=== PATIENT | female | born 1975 | race Caucasian/White ===

== ENCOUNTER 2017-10-06 14:54 | Emergency (ER) | payer MEDICAID, SELFPAY ==
[2017-10-06 14:55] VITALS: BP 139/91; PULSE 76; RESP 16; TEMP 36.5; O2SAT 100; BMI 27.2
--- NOTE | 2017-10-06 15:29 | ED.DCSUM_ITS ---
- ER Visit Summary Date of Service: 10/06/17 Chief Complaint: Dental pain History of Present Illness: The patient is a 42 F states she woke at 230 this morning with left upper dental pain. She does not know of any injury. She has been taking ibuprofen every 4 hours and is using BMX swish and spit. She is also tried Orajel. She states that she has had gastric bypass and is not supposed be taking anti-inflammatories. Physical Examination: Vital signs are unremarkable. Patient sitting in a bedside chair no acute distress. Head neck examination was no facial edema or erythema. Intraoral examination reveals reproducible tenderness of the left maxillary second molar. She has mild gum edema. Filling is in place. There is no trismus and uvula is midline. She speaking with a strong voice and has been tolerating secretions without difficulty. Trachea is midline. There is no cervical lymphadenopathy. Heart is regular rate and rhythm. Lung sounds are clear. Abdomen is soft nontender. Test Results: [] Emergency Department Course and Treatment: Patient be given a perception for Pen -Vee K, first dose given here. She is encouraged to alternate Tylenol and ibuprofen. She is to use Orajel. She was given a dental referral list. Treatment Plan: [] Disposition: Discharge Impression: Odontalgia This note was generated with [employer] - ASO dictation software. It may contain incorrect words, spelling, and punctuation that were not noted in review of the chart prior to signing ED Disposition - Plan for ED Patient: Chief Complaint: Dental Referrals: Leonora Pruitt MD [Primary Care Provider] -
--- NOTE | 2017-10-06 15:29 | ED.DEP ---
ED Disposition - Plan for ED Patient: Disposition: Home or Assisted Living Chief Complaint: Dental Instructions: ED Tooth Pain Prescriptions: Penicillin V Potassium 500 mg PO 4X/DAY #40 tablet Referrals: Leonora Pruitt MD [NON-STAFF] - Additional Instructions: Dental referral list provided.
[2017-10-06] MEDS: Penicillin Vk 250 MG Tablet 500 MG PO (15:37)
== END 2017-10-06 15:40 | disposition home or self-care (01) ==
PROVIDERS: Emergency Provider Emergency Medicine
DX: K08.89 Other specified disorders of teeth and supporting structures (principal); Z98.84 Bariatric surgery status; Z87.442 Personal history of urinary calculi
CPT/HCPCS: 99282

== ENCOUNTER 2017-11-07 10:21 | Inpatient (IN) | payer MEDICAID, SELFPAY ==
[2017-11-07] VITALS (8 sets, daily range): BP systolic 128–144; BP diastolic 79–96; PULSE 91–100; RESP 16–18; TEMP 35.9–36.9; O2SAT 93–99; BMI 30.1
--- NOTE | 2017-11-07 10:33 | ED.VISSUMM ---
- ER Visit Summary Date of Service: 11/07/17 Chief Complaint: Requesting detox for chronic alcoholism History of Present Illness: The patient is a 42 F history of alcohol abuse. Patient states she drinks 2 pints of vodka a day. History of anemia. Depression. Last drink was earlier this morning to calm her nerves. Physical Examination: Well-appearing middle-age female. Vital signs are stable afebrile. HEENT exam unremarkable. Neck nontender no lymphadenopathy. Lungs clear to auscultation bilaterally. Heart regular rate and rhythm no murmur. Abdomen soft nontender. Moving all 4 extremities. Neurovascular intact. Back exam nontender. Neurologically she is awake alert with no focal deficits at this time. Test Results: None Emergency Department Course and Treatment: I spoke to the [facility] personnel who will come down to the ER evaluate the patient for possible admission. Treatment Plan: Patient evaluated patient and accepted her for detox. I spoke to the hospitalist and they will admit her. Disposition: Admission for detox Impression: History of chronic alcoholism Requesting detox History of anemia This note was generated with Sophia Search dictation software. It may contain incorrect words, spelling, and punctuation that were not noted in review of the chart prior to signing ED Disposition - Plan for ED Patient: Chief Complaint: Subst Abuse Referrals: [facility] Doctor,Out of [Primary Care Provider] -
--- NOTE | 2017-11-07 10:38 | ED.DCSUM_ITS ---
- ER Visit Summary Date of Service: 11/07/17 Chief Complaint: Requesting detox for chronic alcoholism History of Present Illness: The patient is a 42 F history of alcohol abuse. Patient states she drinks 2 pints of vodka a day. History of anemia. Depression. Last drink was earlier this morning to calm her nerves. Physical Examination: Well-appearing middle-age female. Vital signs are stable afebrile. HEENT exam unremarkable. Neck nontender no lymphadenopathy. Lungs clear to auscultation bilaterally. Heart regular rate and rhythm no murmur. Abdomen soft nontender. Moving all 4 extremities. Neurovascular intact. Back exam nontender. Neurologically she is awake alert with no focal deficits at this time. Test Results: None Emergency Department Course and Treatment: I spoke to the [facility] personnel who will come down to the ER evaluate the patient for possible admission. Treatment Plan: Patient evaluated patient and accepted her for detox. I spoke to the hospitalist and they will admit her. Disposition: Admission for detox Impression: History of chronic alcoholism Requesting detox History of anemia This note was generated with [employer] dictation software. It may contain incorrect words, spelling, and punctuation that were not noted in review of the chart prior to signing ED Disposition - Plan for ED Patient: Chief Complaint: Subst Abuse Referrals: [facility] Doctor,Out of [Primary Care Provider] -
--- NOTE | 2017-11-07 11:27 | NURSING ---
[facility] at bedside with pt.
[2017-11-07] MEDS: LORazepam 1 MG Tablet PO ×4 (11:28→22:56)
[2017-11-07 12:23] LABS: Amphetamine Urine VISTA NEGATIVE (<1000 ng/mL); Barbiturate Urine VISTA NEGATIVE (< 200 ng/mL); Benzodiazepine Urine VISTA NEGATIVE (< 200 ng/mL); Cocaine Urine VISTA NEGATIVE (< 300 ng/mL); Ecstacy Urine VISTA NEGATIVE (< 500 ng/mL); Methadone Urine VISTA NEGATIVE (< 300 ng/mL); PCP Urine VISTA NEGATIVE (< 25 ng/mL); THC Urine VISTA NEGATIVE (< 50 ng/mL); Vista UDS pH Range 6
[2017-11-07] MEDS: Ondansetron ODT 4 MG Tablet PO (12:23)
[2017-11-07 12:41] LABS: Amylase 65 U/L (25-115); Lipase 160 U/L (73-393)
--- NOTE | 2017-11-07 12:43 | PCM.HP.STD ---
Problem List (1) Alcohol withdrawal Status: Acute Qualifiers: Complication of substance-induced condition: uncomplicated Qualified Code(s): F10.230 - Alcohol dependence with withdrawal, uncomplicated (2) Anxiety and depression Status: Chronic History of Present Illness Date of Admission: 11/07/17 Chief Complaint: Tremors, sweats, nausea, diaphoresis - 1 day The patient is a 42 year old F with PMHx of disorder with use of more than 2 pints of vodka every day, history of opiate use disorder, and, anxiety and depression who comes in with sweatiness, tremors, nausea ongoing for more than 1 day. Last drink was this morning. Patient is looking for medical stabilization with [facility]. The [facility] staff was apparently evaluated and has admitted her for the program. Vitals in the ED were stable with slight elevation in blood pressure of 144/96. Past Medical History Past Medical History (Chronic Problems): Chronic Problems Anxiety and depression (Chronic) Allergies No Known Allergies Allergy (Verified 11/07/17 10:23) Home Medications: Ambulatory Orders Medication Instructions Recorded Multivitamin [Daily Multiple 1 each PO DAILY 04/15/16 Vitamin] Sertraline HCl [Zoloft] 150 mg PO DAILY 04/15/16 Ferrous Sulfate 325 mg PO DAILY@0800 11/07/17 Mirtazapine [Remeron] 30 mg PO QHS 11/07/17 Varenicline [Chantix] 1 mg PO DAILY 11/07/17 Surgical History: - - gastric bypass. 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 Denies: Fever, Weakness, Weight Change Eyes: Denies: Blurred vision, Cataracts, Conjunctivae Inflammation HEENT: Denies: Difficulty Hearing, Difficulty Swallowing, Head Aches, Hearing Changes, Sinus Congestion, Sinus Drainage Cardiovascular: Denies: Chest Pain, Claudication, Chest Pressure, Orthopnea, Palpitations, Paroxysmal Noc. Dyspnea Respiratory: Denies: Cough, Hemoptysis, Pleuritic Pain, Shortness of breath at rest, Shortness of breath upon exertion, Sputum production Gastrointestinal: Reports: Nausea. Denies: Abdominal Pain, Constipation, Hematemesis, Hematochezia, Vomiting Genitourinary: Denies: Dysuria, Frequency, Hematuria, Incontinence, Nocturia Gynecological: Denies: Breast symptoms, Excessively long or heavy periods Musculoskeletal: Denies: Joint Pain, Joint stiffness, Joint swelling, Joint Tenderness Skin: Denies: Dryness, Rash, Wounds Neurological: Denies: Difficulty swallowing, Focal weakness, Headaches, Numbness, Tingling Psychiatric: Denies: Anxiety, Depression, Homicidal Ideations, Suicidal Ideations Endocrine: Denies: Change in Body Habitus, Heat/ Cold Intolerance Hematologic/ Lymphatic: Denies: Easy Bruising, Easy Bleeding VTE Information - Inpt Only VTE Present on Admission: No VTE Pharm Prophylaxis ordered?: Yes Patient Problems: Active and Suspected Problems Alcohol withdrawal (Acute) - Physical Exam General: Alert, Oriented x3, Cooperative, No apparent distress HEENT: Atraumatic, PERRLA, EOMI, Normocephalic Oral: Moist Mucosa Neck: Supple Lungs: Clear to auscultation, Normal air movement Cardiovascular: Regular rate, Regular Rhythm, Normal S1, Normal S2, No murmurs Abdomen: Bowel Sounds Present, Soft, Non Tender, Non-Distended, No Hepato-splenomegaly Extremities: No edema Skin: No rashes, No breakdown Musculoskeletal: No Tenderness to Palpation of Joints or Extremities Lymphatic: No Cervical, Supraclavicular, or Inguinal Adenopathy Neurological: Cranial nerves II-XII grossly intact, Neuro grossly intact, Motor Exam 5/5 strength throughout Psych/Mental Status: Normal Affect, Appropriate Vital Signs Temp Pulse Resp BP Pulse Ox 96.7 F L 92 18 144/96 H 97 11/07/17 11:15 11/07/17 11:15 11/07/17 11:15 11/07/17 11:15 11/07/17 11:15 Weight: 95.254 kg Body Mass Index (BMI) 30.1 Laboratory Tests Past 24 Hrs 11/07/17 11/07/17 11/07/17 11:31 12:20 12:20 PT INR Amylase 65 Lipase 160 Serum , Qual Urine Opiates Screen NEGATIVE Urine Methadone Screen NEGATIVE Ur Barbiturates Screen NEGATIVE Ur Phencyclidine Scrn NEGATIVE Ur Amphetamines Screen NEGATIVE U Methamphetamin-MDMA NEGATIVE U Benzodiazepines Scrn NEGATIVE Urine Cocaine Screen NEGATIVE U Cannabinoids Screen NEGATIVE Ur Drug Screen Comment Ethyl Alcohol Pending 11/07/17 11/07/17 12:20 12:20 PT Pending INR Pending Amylase Lipase Serum , Qual Pending Urine Opiates Screen Urine Methadone Screen Ur Barbiturates Screen Ur Phencyclidine Scrn Ur Amphetamines Screen U Methamphetamin-MDMA U Benzodiazepines Scrn Urine Cocaine Screen U Cannabinoids Screen Ur Drug Screen Comment Ethyl Alcohol Assessment/Plan Active and Suspected Problems Alcohol withdrawal (Acute) 42 year old F with PMHx of disorder with use of more than 2 pints of vodka every day, history of opiate use disorder, and, anxiety and depression who comes in with sweatiness, tremors, nausea ongoing for more than 1 day. 1. Acute Alcohol withdrawal, admitting alcohol level is 151, stable vitals, will admit to the [facility] floor, monitor using the [facility] alcohol withdrawal protocol. 2. Anxiety/depression, continue home antidepressants. 3. History of kidney stones 4. Former nicotine use disorder, on Chantix 5. DVT PPx - Lovenox [place] Code Visit Inpatient E&M: 93630 Init Hosp L2
[2017-11-07 12:48] LABS: Prothrombin Time (Protime)PT. 13.2 SECONDS (11.7-14.9)
[2017-11-07 12:49] LABS: Pregnancy, Serum, hCG Quali. NEGATIVE Negative (0-9 Nonpreg)
--- NOTE | 2017-11-07 12:57 | HP.PCM_ITS ---
Problem List (1) Alcohol withdrawal Status: Acute Qualifiers: Complication of substance-induced condition: uncomplicated Qualified Code(s ): F10.230 - Alcohol dependence with withdrawal, uncomplicated (2) Anxiety and depression Status: Chronic History of Present Illness Date of Admission: 11/07/17 Chief Complaint: Tremors, sweats, nausea, diaphoresis - 1 day The patient is a 42 year old F with PMHx of disorder with use of more than 2 pints of vodka every day, history of opiate use disorder, and, anxiety and depression who comes in with sweatiness, tremors, nausea ongoing for more than 1 day. Last drink was this morning. Patient is looking for medical stabilization with [facility]. The [facility] staff was apparently evaluated and has admitted her for the program. Vitals in the ED were stable with slight elevation in blood pressure of 144/96. Past Medical History Past Medical History (Chronic Problems): Chronic Problems Anxiety and depression (Chronic) Allergies No Known Allergies Allergy (Verified 11/07/17 10:23) Home Medications: Ambulatory Orders Medication Instructions Recorded Multivitamin [Daily Multiple 1 each PO DAILY 04/15/16 Vitamin] Sertraline HCl [Zoloft] 150 mg PO DAILY 04/15/16 Ferrous Sulfate 325 mg PO DAILY@0800 11/07/17 Mirtazapine [Remeron] 30 mg PO QHS 11/07/17 Varenicline [Chantix] 1 mg PO DAILY 11/07/17 Surgical History: - - gastric bypass. 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 Denies: Fever, Weakness, Weight Change Eyes: Denies: Blurred vision, Cataracts, Conjunctivae Inflammation HEENT: Denies: Difficulty Hearing, Difficulty Swallowing, Head Aches, Hearing Changes, Sinus Congestion, Sinus Drainage Cardiovascular: Denies: Chest Pain, Claudication, Chest Pressure, Orthopnea, Palpitations, Paroxysmal Noc. Dyspnea Respiratory: Denies: Cough, Hemoptysis, Pleuritic Pain, Shortness of breath at rest, Shortness of breath upon exertion, Sputum production Gastrointestinal: Reports: Nausea. Denies: Abdominal Pain, Constipation, Hematemesis, Hematochezia, Vomiting Genitourinary: Denies: Dysuria, Frequency, Hematuria, Incontinence, Nocturia Gynecological: Denies: Breast symptoms, Excessively long or heavy periods Musculoskeletal: Denies: Joint Pain, Joint stiffness, Joint swelling, Joint Tenderness Skin: Denies: Dryness, Rash, Wounds Neurological: Denies: Difficulty swallowing, Focal weakness, Headaches, Numbness , Tingling Psychiatric: Denies: Anxiety, Depression, Homicidal Ideations, Suicidal Ideations Endocrine: Denies: Change in Body Habitus, Heat/ Cold Intolerance Hematologic/ Lymphatic: Denies: Easy Bruising, Easy Bleeding VTE Information - Inpt Only VTE Present on Admission: No VTE Pharm Prophylaxis ordered?: Yes Patient Problems: Active and Suspected Problems Alcohol withdrawal (Acute) - Physical Exam General: Alert, Oriented x3, Cooperative, No apparent distress HEENT: Atraumatic, PERRLA, EOMI, Normocephalic Oral: Moist Mucosa Neck: Supple Lungs: Clear to auscultation, Normal air movement Cardiovascular: Regular rate, Regular Rhythm, Normal S1, Normal S2, No murmurs Abdomen: Bowel Sounds Present, Soft, Non Tender, Non-Distended, No Hepato- splenomegaly Extremities: No edema Skin: No rashes, No breakdown Musculoskeletal: No Tenderness to Palpation of Joints or Extremities Lymphatic: No Cervical, Supraclavicular, or Inguinal Adenopathy Neurological: Cranial nerves II-XII grossly intact, Neuro grossly intact, Motor Exam 5/5 strength throughout Psych/Mental Status: Normal Affect, Appropriate Vital Signs Temp Pulse Resp BP Pulse Ox 96.7 F L 92 18 144/96 H 97 11/07/17 11:15 11/07/17 11:15 11/07/17 11:15 11/07/17 11:15 11/07/17 11:15 Weight: 95.254 kg Body Mass Index (BMI) 30.1 Laboratory Tests Past 24 Hrs 11/07/17 11/07/17 11/07/17 11:31 12:20 12:20 PT INR Amylase 65 Lipase 160 Serum , Qual Urine Opiates Screen NEGATIVE Urine Methadone Screen NEGATIVE Ur Barbiturates Screen NEGATIVE Ur Phencyclidine Scrn NEGATIVE Ur Amphetamines Screen NEGATIVE U Methamphetamin-MDMA NEGATIVE U Benzodiazepines Scrn NEGATIVE Urine Cocaine Screen NEGATIVE U Cannabinoids Screen NEGATIVE Ur Drug Screen Comment Ethyl Alcohol Pending 11/07/17 11/07/17 12:20 12:20 PT Pending INR Pending Amylase Lipase Serum , Qual Pending Urine Opiates Screen Urine Methadone Screen Ur Barbiturates Screen Ur Phencyclidine Scrn Ur Amphetamines Screen U Methamphetamin-MDMA U Benzodiazepines Scrn Urine Cocaine Screen U Cannabinoids Screen Ur Drug Screen Comment Ethyl Alcohol Assessment/Plan Active and Suspected Problems Alcohol withdrawal (Acute) 42 year old F with PMHx of disorder with use of more than 2 pints of vodka every day, history of opiate use disorder, and, anxiety and depression who comes in with sweatiness, tremors, nausea ongoing for more than 1 day. 1. Acute Alcohol withdrawal, admitting alcohol level is 151, stable vitals, will admit to the MedSur floor, monitor using the [facility] alcohol withdrawal protocol. 2. Anxiety/depression, continue home antidepressants. 3. History of kidney stones 4. Former nicotine use disorder, on Chantix 5. DVT PPx - Lovenox SC Code Visit Inpatient E&M: 09533 Init Hosp L2
[2017-11-07] MEDS: hydrOXYzine PAM 25 MG Capsule 50 MG PO ×2 (13:19→20:18)
[2017-11-07] MEDS: Methocarbamol 750 MG Tablet PO ×2 (13:19→20:18)
[2017-11-07] MEDS: Famotidine 20 MG Tablet PO ×2 (13:19→21:33)
--- NOTE | 2017-11-07 13:41 | NURSING ---
pt refused iv insertion at this time
--- NOTE | 2017-11-07 14:26 | NURSING ---
at 1400, pt was restless (but not shaking) wanting something for what she describes as feeling hot inside-reviewed meds available at this time with pt and she declines motrin offerred because she is afraid that will upset her stomach-pt was encouraged to wait for 3 pm dose of ativan and assessment and she is agreeable to that at this time-@ 1430 this nurse rounded on pt and pt is laying on stomach in bed, snoring, call light in reach
[2017-11-07] MEDS: QUEtiapine 25 MG Tablet PO ×2 (15:04→21:33)
[2017-11-07] MEDS: Acetaminophen 500 MG Tablet PO (15:06)
--- NOTE | 2017-11-07 15:57 | CHAPLAIN ---
Type of Pastoral Visit _x__ Initial Visit ___ Follow-up Visit ___ On-call Visit ___ General Patient Visit ___ Spiritual Assessment ___ Family Conference ___ Bereavement ___ Rapid Response ___ Code Blue ___ Other (describe below) Pastoral Care Referral From _x__ Patient ___ Family ___ Nurse ___ Physician ___ Corporate Sales Representative ___ Orthodontic Assistant ___ Other (describe below) Sacrament/Intervention _x__ Active listening ___ Anointing ___ Cheondoism ___ Bereavement ___ Communion ___ Gypsy exploration ___ _x__ Life review _x__ Prayer ___ Reconciliation ___ Sacrament of Sick ___ Supportive presence ___ Wedding ___ Other (describe below) Pastoral Comments met this patient while she was in ER because [facility] staff invited me to welcome her and offer support for her recovery; found pt in her room after she was settled; pt gave some life history and struggle with sobriety; pt has a young son; pt has support from AA which she says has been an active part of her life; pt is open to support; pt accepted prayer for her recovery
[2017-11-07] MEDS: Dicyclomine 10 MG Capsule 20 MG PO (18:26)
[2017-11-07] MEDS: Pramipexole Di-HCl 0.25 MG Tablet PO (18:26)
[2017-11-07] MEDS: Ibuprofen 600 MG Tablet PO (18:26)
[2017-11-07] MEDS: Senna/Docusate Sodium 1 Tablet 2 TABLET PO (21:33)
[2017-11-07] MEDS: Mirtazapine 30 MG Tablet PO (21:33)
[2017-11-07] MEDS: Varenicline 1 MG Tablet PO (21:58)
[2017-11-08] MEDS: hydrOXYzine PAM 25 MG Capsule 50 MG PO ×4 (01:13→21:48)
[2017-11-08 02:00] VITALS: BP 142/104; PULSE 95; RESP 16; TEMP 36.6; O2SAT 98
[2017-11-08] MEDS: LORazepam 1 MG Tablet PO ×4 (03:54→19:00)
[2017-11-08] MEDS: QUEtiapine 25 MG Tablet PO ×3 (03:54→20:42)
[2017-11-08 05:53] LABS: Absolute Lymphocyte Count 3.14 X10^3/ul (0.83-4.51); Absolute Neutrophil Count 3.2 X10^3/uL (2.0-7.7); Basophil# 0.05 X10^3/uL; Basophil% 0.7 % (0-1); Eosinophil# 0.17 X10^3/uL; Eosinophils% 2.4 % (0-5); Hematocrit 28.8 % (37-47); Lymphocyte # 3.14 X10^3/ul (4.0); Mean Corp Hgb Conc 31.3 g/gl (32-36); Mean Corpuscular Hgb 27.5 pg (27.0-32.0); Mean Corpuscular Volume 88.1 fL (81-99); Mean Platelet Vol. 8.7 fl (6.2-12.0); Monocyte# 0.58 X10^3/uL; Monocyte% 8.1 % (0-10); Neutrophil # 3.18 X10^3/uL (2.7-7.7); Neutrophil % 44.7 % (47-70); Platelet Count 322 K/mm3 (150-450); RBC Distribution Width CV 13.7 % (11.6-14.6); RBC Distribution Width SD 42.6 fl (35.1-43.9); Red Blood Count 3.27 M/mm3 (4.2-5.4); White Blood Count 7.1 K/mm3 (4.4-11.0)
[2017-11-08 05:55] LABS: POSITIVE COUNT NO; POSITIVE DIFFERENTIAL NO; POSITIVE MORPHOLOGY NO
[2017-11-08 06:10] LABS: Anion Gap 6 (5-15); BUN 13 mg/dL (7-18); Calcium,Total 7.8 mg/dL (8.5-10.1); Chloride 109 mmol/L (98-107); EST Glomerular Filtration Rate 145 mL/min (>60); Est Glom Filt Rate - Afr Amer 175 mL/min (>60); Estimated Creatinine Clearance 161.74 ml/min; Glucose 108 mg/dL (74-106); Potassium 3.4 mmol/L (3.5-5.1); Sodium Level 141 mmol/L (136-145)
--- NOTE | 2017-11-08 07:51 | PCM.PN.HOSP ---
Patient Problems: Active and Suspected Problems Alcohol withdrawal (Acute) Subjective: Patient was seen and examined. She complains of poor sleep last night. Has anxiety and feels the Ativan given is taking the edge off it. Complains of bilateral flank pain and feels is related to her episodes of drinking. Denies any dysuria or frequency or urgency. Objective: Physical Exam General: Alert, Oriented x3, Cooperative, No apparent distress HEENT: Atraumatic, PERRLA, EOMI, Normocephalic Oral: Moist Mucosa Neck: Supple Lungs: Clear to auscultation, Normal air movement Cardiovascular: Regular rate, Regular Rhythm, Normal S1, Normal S2, No murmurs Abdomen: Bowel Sounds Present, Soft, Non Tender, Non-Distended, No Hepato-splenomegaly Extremities: No edema Skin: No rashes, No breakdown Musculoskeletal: No Tenderness to Palpation of Joints or Extremities Lymphatic: No Cervical, Supraclavicular, or Inguinal Adenopathy Neurological: Cranial nerves II-XII grossly intact, Neuro grossly intact, Motor Exam 5/5 strength throughout, no tremors seen Psych/Mental Status: Normal Affect, Appropriate Vitals/I&O's: Vital Signs Temp Pulse Resp BP Pulse Ox 97.9 F 95 16 142/104 H 98 11/08/17 02:00 11/08/17 02:00 11/08/17 02:00 11/08/17 02:00 11/08/17 02:00 Oxygen Delivery Method Room Air Weight: 95.254 kg Body Mass Index (BMI) 30.1 Laboratory Results 11/07/17 11:31: Urine Opiates Screen NEGATIVE, Urine Methadone Screen NEGATIVE, Ur Barbiturates Screen NEGATIVE, Ur Phencyclidine Scrn NEGATIVE, Ur Amphetamines Screen NEGATIVE, U Methamphetamin-MDMA NEGATIVE, U Benzodiazepines Scrn NEGATIVE, Urine Cocaine Screen NEGATIVE, U Cannabinoids Screen NEGATIVE, Ur Drug Screen Comment 11/07/17 12:20: Ethyl Alcohol 151.0 11/07/17 12:20: Amylase 65, Lipase 160 11/07/17 12:20: PT 13.2, INR 1.0 11/07/17 12:20: Serum , Qual NEGATIVE 11/08/17 05:30: WBC 7.1, RBC 3.27 L, Hgb 9.0 L, Hct 28.8 L, MCV 88.1, MCH 27.5, MCHC 31.3 L, RDW 13.7, RDW Differential 42.6, Plt Count 322, MPV 8.7, Immature Gran % (Auto) 0.100, Neut % (Auto) 44.7 L, Lymph % (Auto) 44.0 H, [place] % (Auto) 8.1, Eos % (Auto) 2.4, Baso % (Auto) 0.7, Absolute Neuts (auto) 3.2, Absolute Lymphs (auto) 3.14, Total Counted Not Reportable 11/08/17 05:30: Sodium 141, Potassium 3.4 L, Chloride 109 H, Carbon Dioxide 26.0, Anion Gap 6, BUN 13, Creatinine 0.50 L, Estim Creat Clear Calc 161.74, Est GFR (MDRD) Af Amer 175, Est GFR (MDRD) Non-Af 145, BUN/Creatinine Ratio 26.0 H, Glucose 108 H, Calcium 7.8 L Current Medications Acetaminophen (Tylenol) 500 mg PO Q4H PRN PRN PRN Reason: Temp > 100.4 F Last Admin: 11/07/17 15:06 Dose: 500 mg Al Hydroxide/Mg Hydroxide (Mylanta Ii) 30 ml PO Q6H PRN PRN PRN Reason: dyspesia Bisacodyl (Dulcolax) 5 mg PO DAILY PRN PRN PRN Reason: Constipation Dicyclomine HCl (Bentyl) 20 mg PO Q6H PRN PRN PRN Reason: abdominal discomfort Last Admin: 11/07/17 18:26 Dose: 20 mg Famotidine (Pepcid) 20 mg PO BID [facility] Last Admin: 11/07/17 21:33 Dose: 20 mg Ferrous Sulfate (Ferrous Sulfate) 325 mg PO DAILY@0800 [facility] Folic Acid (Folic Acid) 1 mg PO DAILY@0800 [facility] Hydroxyzine Pamoate (Vistaril Pamoate Capsule) 50 mg PO Q6H PRN PRN PRN Reason: Mild Anxiety (score 1/3) Last Admin: 11/08/17 01:13 Dose: 50 mg Ibuprofen (Motrin) 600 mg PO Q8H PRN PRN PRN Reason: Mild-Moderate Pain (1-5/10) Last Admin: 11/07/17 18:26 Dose: 600 mg Lorazepam (Ativan) 1 mg PO Q6H [facility] PRN Reason: Taper Stop: 11/10/17 15:29 Last Admin: 11/08/17 06:47 Dose: 1 mg Magnesium Hydroxide (Milk Of Magnesia) 30 ml PO DAILY PRN PRN PRN Reason: Constipation Methocarbamol (Methocarbamol) 750 mg PO Q6H PRN PRN PRN Reason: Muscle Aches Last Admin: 11/07/17 20:18 Dose: 750 mg Mirtazapine (Remeron) 30 mg PO QHS [facility] Last Admin: 11/07/17 21:33 Dose: 30 mg Multivitamins (Multivitamin) 1 tablet PO DAILY@0800 [facility] Ondansetron HCl (Zofran Odt) 4 mg PO Q6H PRN PRN PRN Reason: NAUSEA Last Admin: 11/07/17 12:23 Dose: 4 mg Pramipexole Dihydrochloride (Mirapex) 0.25 mg PO Q12H PRN PRN PRN Reason: Restless legs Last Admin: 11/07/17 18:26 Dose: 0.25 mg Psyllium Hydrophilic Mucilloid (Metamucil) 1 packet PO DAILY PRN PRN PRN Reason: CONSTIPATION Quetiapine Fumarate (Seroquel) 25 mg PO Q6H PRN PRN PRN Reason: Moderate Anxiety (score 2/3) Last Admin: 11/08/17 03:54 Dose: 25 mg Senna/Docusate Sodium (Senokot-S, Jyoti-Colace) 2 tablet PO BID [facility] Last Admin: 11/07/17 21:33 Dose: 2 tablet Sertraline HCl (Zoloft) 150 mg PO DAILY [facility] Sodium Chloride () 5 - 30 ml IV UD PRN PRN Reason: SALINE FLUSH [facility]) [facility] Varen[facility]line (Chantix) 1 mg PO BID [facility] Last Admin: 11/07/17 21:58 Dose: 1 mg Medical Necessity - Tobacco Use Smoking Status: Former smoker Tobacco Use: Non-smoker Assessment/Plan Active and Suspected Problems Alcohol withdrawal (Acute) 42 year old F with PMHx of alcohol use disorder with use of more than 2 pints of vodka every day, history of opiate use disorder, anxiety and depression who comes in with sweatiness, tremors, nausea ongoing for more than 1 day. 1. Acute alcohol withdrawal, mild, stable vitals, will continue using the [facility] alcohol withdrawal protocol. 2. Hypokalemia, will replace, recheck in am 3. Anxiety/depression, continue on home antidepressants. 4. History of kidney stones 5. Former nicotine use disorder, on Chantix 6. DVT PPx - Lovenox [place] Code Visit Inpatient E&M: 83387 Subs Hosp L2
[2017-11-08 08:00] VITALS: BP 141/103; PULSE 110; RESP 18; TEMP 36.6; O2SAT 94
[2017-11-08] MEDS: Multivitamins,Therapeutic Tablet 1 TABLET PO (08:46)
[2017-11-08] MEDS: Folic Acid 1 MG Tablet PO (08:46)
[2017-11-08] MEDS: Ferrous Sulfate 325 MG Tablet PO (08:46)
[2017-11-08] MEDS: Thiamine Hydrochloride 100 MG Tablet PO (08:47)
[2017-11-08] MEDS: Varenicline 1 MG Tablet PO ×2 (08:47→20:43)
[2017-11-08] MEDS: Sertraline 100 MG Tablet 150 MG PO (08:48)
[2017-11-08] MEDS: Famotidine 20 MG Tablet PO ×2 (08:48→20:44)
[2017-11-08] MEDS: Ibuprofen 600 MG Tablet PO (08:49)
[2017-11-08] MEDS: Methocarbamol 750 MG Tablet PO ×2 (08:49→15:21)
[2017-11-08] MEDS: cloNIDine HCl 0.1 MG Tablet PO ×4 (08:58→21:51)
[2017-11-08 09:08] VITALS: BP 141/103; PULSE 97; RESP 18; TEMP 36.8
[2017-11-08 13:00] VITALS: BP 145/101; PULSE 104; PULSE 97; RESP 20; TEMP 36.9; O2SAT 99
--- NOTE | 2017-11-08 17:20 | NURSING ---
1700- job and family services at bedside. pt states 'i am feeling better now, so can you take that alarm off of my bed. informed pt that she reported she had fallen earlier to another staff member- and because pt states she fell which was unwitenessed by staff- the bed exit will need to remain on for pt safety.
--- NOTE | 2017-11-08 20:02 | NURSING ---
Per dayshift RN patients visitor turned off patients bed alarm, when this RN went into do rounds with off going RN, bed alarm was off. Patient is not walking around independently in room, gait steady, visitor still in room at this time.
[2017-11-08 20:35] VITALS: BP 127/77; PULSE 86; RESP 16; TEMP 36.4; O2SAT 99
--- NOTE | 2017-11-08 20:39 | NURSING ---
Patient requesting routine HS meds given at this time.
[2017-11-08] MEDS: Mirtazapine 30 MG Tablet PO (20:45)
[2017-11-08] MEDS: Pramipexole Di-HCl 0.25 MG Tablet PO (21:48)
[2017-11-08 21:52] VITALS: BP 127/77; PULSE 86; RESP 16; TEMP 36.4
[2017-11-09] VITALS (7 sets, daily range): BP systolic 100–127; BP diastolic 62–84; PULSE 75–91; RESP 16–18; TEMP 36.3–36.8; O2SAT 98–100
[2017-11-09] MEDS: LORazepam 1 MG Tablet PO ×4 (01:46→23:13)
[2017-11-09] MEDS: cloNIDine HCl 0.1 MG Tablet PO ×6 (01:46→21:43)
[2017-11-09] MEDS: QUEtiapine 25 MG Tablet PO ×3 (05:42→19:21)
[2017-11-09 06:30] LABS: Anion Gap 6 (5-15); BUN 16 mg/dL (7-18); BUN/Creat Ratio 34.2 RATIO (10-20); Calcium,Total 7.8 mg/dL (8.5-10.1); Chloride 109 mmol/L (98-107); Creatinine, Serum 0.47 mg/dL (0.55-1.02); EST Glomerular Filtration Rate 156 mL/min (>60); Est Glom Filt Rate - Afr Amer 189 mL/min (>60); Estimated Creatinine Clearance 172.06 ml/min; Glucose 93 mg/dL (74-106); Potassium 3.9 mmol/L (3.5-5.1); Sodium Level 141 mmol/L (136-145)
--- NOTE | 2017-11-09 08:14 | PCM.PN.HOSP ---
Patient Problems: Active and Suspected Problems Alcohol withdrawal (Acute) Subjective: Patient was seen and examined. Apparently had a fall yesterday. No fractures. Denies chest pain, dizziness, palpitations. Objective: Physical Exam General: Alert, Oriented x3, Cooperative, No apparent distress HEENT: Atraumatic, PERRLA, EOMI, Normocephalic Oral: Moist Mucosa Neck: Supple Lungs: Clear to auscultation, Normal air movement Cardiovascular: Regular rate, Regular Rhythm, Normal S1, Normal S2, No murmurs Abdomen: Bowel Sounds Present, Soft, Non Tender, Non-Distended, No Hepato-splenomegaly Extremities: No edema Skin: No rashes, No breakdown Musculoskeletal: No Tenderness to Palpation of Joints or Extremities Lymphatic: No Cervical, Supraclavicular, or Inguinal Adenopathy Neurological: Cranial nerves II-XII grossly intact, Neuro grossly intact, Motor Exam 5/5 strength throughout, no tremors seen Psych/Mental Status: Normal Affect, Appropriate Vitals/I&O's: Vital Signs Temp Pulse Resp BP Pulse Ox 98 F 75 16 109/72 99 11/09/17 05:34 11/09/17 05:34 11/09/17 05:34 11/09/17 05:34 11/08/17 20:35 Oxygen Delivery Method Room Air Weight: 95.254 kg Body Mass Index (BMI) 30.1 Laboratory Results 11/09/17 05:35: Sodium 141, Potassium 3.9, Chloride 109 H, Carbon Dioxide 26.0, Anion Gap 6, BUN 16, Creatinine 0.47 L, Estim Creat Clear Calc 172.06, Est GFR (MDRD) Af Amer 189, Est GFR (MDRD) Non-Af 156, BUN/Creatinine Ratio 34.2 H, Glucose 93, Calcium 7.8 L Current Medications Acetaminophen (Tylenol) 500 mg PO Q4H PRN PRN PRN Reason: Temp > 100.4 F Last Admin: 11/07/17 15:06 Dose: 500 mg Al Hydroxide/Mg Hydroxide (Mylanta Ii) 30 ml PO Q6H PRN PRN PRN Reason: dyspesia Bisacodyl (Dulcolax) 5 mg PO DAILY PRN PRN PRN Reason: Constipation Clonidine (Catapres) 0.1 mg PO Q4 [facility] Last Admin: 11/09/17 05:40 Dose: 0.1 mg Dicyclomine HCl (Bentyl) 20 mg PO Q6H PRN PRN PRN Reason: abdominal discomfort Last Admin: 11/07/17 18:26 Dose: 20 mg Famotidine (Pepcid) 20 mg PO BID [facility] Last Admin: 11/08/17 20:44 Dose: 20 mg Ferrous Sulfate (Ferrous Sulfate) 325 mg PO DAILY@0800 [facility] Last Admin: 11/08/17 08:46 Dose: 325 mg Folic Acid (Folic Acid) 1 mg PO DAILY@0800 [facility] Last Admin: 11/08/17 08:46 Dose: 1 mg Hydroxyzine Pamoate (Vistaril Pamoate Capsule) 50 mg PO Q6H PRN PRN PRN Reason: Mild Anxiety (score 1/3) Last Admin: 11/08/17 21:48 Dose: 50 mg Ibuprofen (Motrin) 600 mg PO Q8H PRN PRN PRN Reason: Mild-Moderate Pain (1-5/10) Last Admin: 11/08/17 08:49 Dose: 600 mg Lorazepam (Ativan) 1 mg PO Q8H [facility] PRN Reason: Taper Stop: 11/10/17 15:29 Last Admin: 11/09/17 06:53 Dose: 1 mg Magnesium Hydroxide (Milk Of Magnesia) 30 ml PO DAILY PRN PRN PRN Reason: Constipation Methocarbamol (Methocarbamol) 750 mg PO Q6H PRN PRN PRN Reason: Muscle Aches Last Admin: 11/08/17 15:21 Dose: 750 mg Mirtazapine (Remeron) 30 mg PO QHS [facility] Last Admin: 11/08/17 20:45 Dose: 30 mg Multivitamins (Multivitamin) 1 tablet PO DAILY@0800 [facility] Last Admin: 11/08/17 08:46 Dose: 1 tablet Ondansetron HCl (Zofran Odt) 4 mg PO Q6H PRN PRN PRN Reason: NAUSEA Last Admin: 11/07/17 12:23 Dose: 4 mg Pramipexole Dihydrochloride (Mirapex) 0.25 mg PO Q12H PRN PRN PRN Reason: Restless legs Last Admin: 11/08/17 21:48 Dose: 0.25 mg Psyllium Hydrophilic Mucilloid (Metamucil) 1 packet PO DAILY PRN PRN PRN Reason: CONSTIPATION Quetiapine Fumarate (Seroquel) 25 mg PO Q6H PRN PRN PRN Reason: Moderate Anxiety (score 2/3) Last Admin: 11/09/17 05:42 Dose: 25 mg Senna/Docusate Sodium (Senokot-S, Jyoti-Colace) 2 tablet PO BID [facility] Last Admin: 11/08/17 20:45 Dose: Not Given Sertraline HCl (Zoloft) 150 mg PO DAILY [facility] Last Admin: 11/08/17 08:48 Dose: 150 mg Sodium Chloride () 5 - 30 ml IV UD PRN PRN Reason: SALINE FLUSH Thiamine HCl (Vitamin B1) 100 mg PO DAILYCM [facility] Last Admin: 11/08/17 08:47 Dose: 100 mg Varenicline (Chantix) 1 mg PO BID [facility] Last Admin: 11/08/17 20:43 Dose: 1 mg Medical Necessity - Tobacco Use Smoking Status: Former smoker Tobacco Use: Non-smoker Assessment/Plan Active and Suspected Problems Alcohol withdrawal (Acute) 42 year old F with PMHx of alcohol use disorder with use of more than 2 pints of vodka every day, history of opiate use disorder, anxiety and depression who comes in with sweatiness, tremors, nausea ongoing for more than 1 day. 1. Acute alcohol withdrawal, improving ,continue using the [facility] alcohol withdrawal protocol. 2. Hypokalemia, resolved 3. Anxiety/depression, continue on home antidepressants. 4. History of kidney stones 5. Former nicotine use disorder, on Chantix 6. DVT PPx - Lovenox SC 7. Disposition: DC tomorrow per [facility] protocol if remains stable. Code Visit Inpatient E&M: 51876 Subs Hosp L2
--- NOTE | 2017-11-09 08:17 | PN_ITS ---
Patient Problems: Active and Suspected Problems Alcohol withdrawal (Acute) Subjective: Patient was seen and examined. Apparently had a fall yesterday. No fractures. Denies chest pain, dizziness, palpitations. Objective: Physical Exam General: Alert, Oriented x3, Cooperative, No apparent distress HEENT: Atraumatic, PERRLA, EOMI, Normocephalic Oral: Moist Mucosa Neck: Supple Lungs: Clear to auscultation, Normal air movement Cardiovascular: Regular rate, Regular Rhythm, Normal S1, Normal S2, No murmurs Abdomen: Bowel Sounds Present, Soft, Non Tender, Non-Distended, No Hepato- splenomegaly Extremities: No edema Skin: No rashes, No breakdown Musculoskeletal: No Tenderness to Palpation of Joints or Extremities Lymphatic: No Cervical, Supraclavicular, or Inguinal Adenopathy Neurological: Cranial nerves II-XII grossly intact, Neuro grossly intact, Motor Exam 5/5 strength throughout, no tremors seen Psych/Mental Status: Normal Affect, Appropriate Vitals/I&O's: Vital Signs Temp Pulse Resp BP Pulse Ox 98 F 75 16 109/72 99 11/09/17 05:34 11/09/17 05:34 11/09/17 05:34 11/09/17 05:34 11/08/17 20:35 Oxygen Delivery Method Room Air Weight: 95.254 kg Body Mass Index (BMI) 30.1 Laboratory Results 11/09/17 05:35: Sodium 141, Potassium 3.9, Chloride 109 H, Carbon Dioxide 26.0, Anion Gap 6, BUN 16, Creatinine 0.47 L, Estim Creat Clear Calc 172.06, Est GFR ( MDRD) Af Amer 189, Est GFR (MDRD) Non-Af 156, BUN/Creatinine Ratio 34.2 H, Glucose 93, Calcium 7.8 L Current Medications Acetaminophen (Tylenol) 500 mg PO Q4H PRN PRN PRN Reason: Temp > 100.4 F Last Admin: 11/07/17 15:06 Dose: 500 mg Al Hydroxide/Mg Hydroxide (Mylanta Ii) 30 ml PO Q6H PRN PRN PRN Reason: dyspesia Bisacodyl (Dulcolax) 5 mg PO DAILY PRN PRN PRN Reason: Constipation Clonidine (Catapres) 0.1 mg PO Q4 [facility] Last Admin: 11/09/17 05:40 Dose: 0.1 mg Dicyclomine HCl (Bentyl) 20 mg PO Q6H PRN PRN PRN Reason: abdominal discomfort Last Admin: 11/07/17 18:26 Dose: 20 mg Famotidine (Pepcid) 20 mg PO BID [facility] Last Admin: 11/08/17 20:44 Dose: 20 mg Ferrous Sulfate (Ferrous Sulfate) 325 mg PO DAILY@0800 [facility] Last Admin: 11/08/17 08:46 Dose: 325 mg Folic Acid (Folic Acid) 1 mg PO DAILY@0800 [facility] Last Admin: 11/08/17 08:46 Dose: 1 mg Hydroxyzine Pamoate (Vistaril Pamoate Capsule) 50 mg PO Q6H PRN PRN PRN Reason: Mild Anxiety (score 1/3) Last Admin: 11/08/17 21:48 Dose: 50 mg Ibuprofen (Motrin) 600 mg PO Q8H PRN PRN PRN Reason: Mild-Moderate Pain (1-5/10) Last Admin: 11/08/17 08:49 Dose: 600 mg Lorazepam (Ativan) 1 mg PO Q8H [facility] PRN Reason: Taper Stop: 11/10/17 15:29 Last Admin: 11/09/17 06:53 Dose: 1 mg Magnesium Hydroxide (Milk Of Magnesia) 30 ml PO DAILY PRN PRN PRN Reason: Constipation Methocarbamol (Methocarbamol) 750 mg PO Q6H PRN PRN PRN Reason: Muscle Aches Last Admin: 11/08/17 15:21 Dose: 750 mg Mirtazapine (Remeron) 30 mg PO QHS [facility] Last Admin: 11/08/17 20:45 Dose: 30 mg Multivitamins (Multivitamin) 1 tablet PO DAILY@0800 [facility] Last Admin: 11/08/17 08:46 Dose: 1 tablet Ondansetron HCl (Zofran Odt) 4 mg PO Q6H PRN PRN PRN Reason: NAUSEA Last Admin: 11/07/17 12:23 Dose: 4 mg Pramipexole Dihydrochloride (Mirapex) 0.25 mg PO Q12H PRN PRN PRN Reason: Restless legs Last Admin: 11/08/17 21:48 Dose: 0.25 mg Psyllium Hydrophilic Mucilloid (Metamucil) 1 packet PO DAILY PRN PRN PRN Reason: CONSTIPATION Quetiapine Fumarate (Seroquel) 25 mg PO Q6H PRN PRN PRN Reason: Moderate Anxiety (score 2/3) Last Admin: 11/09/17 05:42 Dose: 25 mg Senna/Docusate Sodium (Senokot-S, Jyoti-Colace) 2 tablet PO BID [facility] Last Admin: 11/08/17 20:45 Dose: Not Given Sertraline HCl (Zoloft) 150 mg PO DAILY [facility] Last Admin: 11/08/17 08:48 Dose: 150 mg Sodium Chloride () 5 - 30 ml IV UD PRN PRN Reason: SALINE FLUSH Thiamine HCl (Vitamin B1) 100 mg PO DAILYCM [facility] Last Admin: 11/08/17 08:47 Dose: 100 mg Varenicline (Chantix) 1 mg PO BID [facility] Last Admin: 11/08/17 20:43 Dose: 1 mg Medical Necessity - Tobacco Use Smoking Status: Former smoker Tobacco Use: Non-smoker Assessment/Plan Active and Suspected Problems Alcohol withdrawal (Acute) 42 year old F with PMHx of alcohol use disorder with use of more than 2 pints of vodka every day, history of opiate use disorder, anxiety and depression who comes in with sweatiness, tremors, nausea ongoing for more than 1 day. 1. Acute alcohol withdrawal, improving ,continue using the [facility] alcohol withdrawal protocol. 2. Hypokalemia, resolved 3. Anxiety/depression, continue on home antidepressants. 4. History of kidney stones 5. Former nicotine use disorder, on Chantix 6. DVT PPx - Lovenox SC 7. Disposition: DC tomorrow per [facility] protocol if remains stable. Code Visit Inpatient E&M: 52566 Subs Hosp L2
[2017-11-09] MEDS: Multivitamins,Therapeutic Tablet 1 TABLET PO (10:22)
[2017-11-09] MEDS: Varenicline 1 MG Tablet PO ×2 (10:22→20:17)
[2017-11-09] MEDS: Ferrous Sulfate 325 MG Tablet PO (10:22)
[2017-11-09] MEDS: Sertraline 100 MG Tablet 150 MG PO (10:22)
[2017-11-09] MEDS: Thiamine Hydrochloride 100 MG Tablet PO (10:22)
[2017-11-09] MEDS: Famotidine 20 MG Tablet PO ×2 (10:23→20:17)
[2017-11-09] MEDS: Folic Acid 1 MG Tablet PO (10:23)
[2017-11-09] MEDS: hydrOXYzine PAM 25 MG Capsule 50 MG PO ×2 (10:26→17:10)
[2017-11-09] MEDS: Acetaminophen 500 MG Tablet PO (13:17)
[2017-11-09] MEDS: Ondansetron ODT 4 MG Tablet PO (13:18)
[2017-11-09] MEDS: Pramipexole Di-HCl 0.25 MG Tablet PO (18:56)
[2017-11-09] MEDS: Ibuprofen 600 MG Tablet PO (18:56)
[2017-11-09] MEDS: Methocarbamol 750 MG Tablet PO (20:16)
[2017-11-09] MEDS: Senna/Docusate Sodium 1 Tablet 2 TABLET PO (20:16)
[2017-11-09] MEDS: Mirtazapine 30 MG Tablet PO (20:16)
--- NOTE | 2017-11-09 20:18 | NURSING ---
upon entering the room observed pt up in room independently. Assessment completed. pt requesting medication at this time. pt resting in bed at this time, call light in reach. will continue to monitor
[2017-11-10] MEDS: cloNIDine HCl 0.1 MG Tablet PO ×3 (02:32→10:03)
[2017-11-10 02:40] VITALS: BP 97/65; PULSE 73; RESP 18; TEMP 36.8
[2017-11-10] MEDS: LORazepam 1 MG Tablet PO (06:26)
[2017-11-10 06:28] VITALS: BP 103/71; PULSE 75; RESP 16; TEMP 36.6
--- NOTE | 2017-11-10 07:59 | PCM.DC ---
- Discharge Diagnoses Current Active Problems: Current Active and Chronic Problems Alcohol withdrawal Anxiety and depression Former Tobacco use on Chantix regimen Obesity You will use the following diet at home:: No restrictions Your food should be the consistency of: Regular Your liquids should be the consistency of: Regular/Thin Discharge Activity: Return to Normal Activity May resume sexual activity in: No Restrictions Weight Bearing Status: Weight bearing as tolerated Call your doctor if you observe: Fever of 101 or Higher, Inability to urinate, Inability to have a bowel movement, Shortness of breath, Dizziness, Fainting spells, Chest pain, Uncontrolled pain Instructions: The Impact of Alcoholism, Alcoholism: Myths and Facts, Understanding Alcoholism, Alcoholism: Getting Help, Alcohol Withdrawal: What to Expect, Addiction: Ask Yourself These Questions, Addiction: Getting Help, Addiction: Your Treatment Options Allergies/Adverse Reactions: Allergies No Known Allergies Allergy (Verified 11/07/17 10:23) Medications to take at Discharge Multivitamin [Daily Multiple Vitamin] 1 each PO DAILY 04/15/16 Sertraline HCl [Zoloft] 150 mg PO DAILY 04/15/16 Ferrous Sulfate 325 mg PO DAILY@0800 11/07/17 Mirtazapine [Remeron] 30 mg PO QHS 11/07/17 Varenicline [Chantix] 1 mg PO DAILY 11/07/17 Folic Acid 1 mg PO DAILY@0800 #30 tab 11/10/17 Thiamine Hydrochloride [Vitamin B1] 100 mg PO DAILYCM #30 tab 11/10/17 The following prescriptions were given: Folic Acid 1 mg PO DAILY@0800 #30 tab Thiamine Hydrochloride [Vitamin B1] 100 mg PO DAILYCM #30 tab Primary Care Physician: [facility] Doctor,Out of [NON-STAFF] - Please follow up with your Primary Care Physician in: Follow-up within 3-5 days to review admission, assist in staying sober. Please Follow Up With: [facility] When: Please continue w/ [facility] plan for discharge. Proposed Discharge Date: 11/10/17
--- NOTE | 2017-11-10 08:03 | PCM.DC.SUM ---
Discharge Date and Diagnosis - Problem List Patient Problems: Active and Suspected Problems Alcohol withdrawal (Acute) Date of Admission: 11/07/17 Date of Discharge: 11/10/17 - Primary Discharge Diagnosis Active and Suspected Problems Alcohol withdrawal Anxiety and depression Former Tobacco use on Chantix regimen Obesity Fe deficiency anemia - Secondary Discharge Diagnosis Chronic Problems Anxiety and depression (Chronic) Hospital Course and Treatment Operations: None Procedures: None Summary of Care Provided: The patient is a 42 y/o F w/ PMHx: Fe Deficiency Anemia, EtOH Abuse, Obesity, Anxiety and Depression, Former Tobacco Use who presents to the [facility] on 11/07/17 w/ noted acute EtOH withdrawal with onset of nausea, tremors, agitation, tactile disturbances. Patient interested in attaining sober status. Patient was admitted to [place] on telemetry, routine labs obtained, initiated and continue on [facility] service protocol with taper course of ativan, as needed Seroquel, Catapres, Bentyl, Vistaril, IV fluids, IV antiemetics, Tylenol as needed for pain. Patient clinically improved and completed taper with [facility] assistance for transition to next level of rehabilitation care. During admission patient maintained on her home regimen, including regimen for anxiety and depression as well as Chantix for ongoing efforts for tobacco cessation. During admission 11/08/17 patient did have fall with no injury and examination per Hospitalist and staff was unremarkable. Patient continued on protocol as noted without further issues. DAY OF DISCHARGE PROGRESS NOTE: Subjective: Patient without acute event overnight per self and nursing report. Patient withdrawal symptoms notably improved. Patient denies fever, chills, nausea, emesis, abdominal pain, chest pain or dyspnea. Patient agreeable to discharge to outpatient for ongoing [facility] directed rehabilitation. Patient will be discharged with follow-up with primary care physician within 3-5 days in addition to as noted [facility] plan for continued sobriety. Objective: T 97.9, heart rate 75, BP 103/71, respiratory rate 16, 98% on RA. Physical Examination: General: awake, alert, oriented x 3 and cooperative, seated upright in the bed, NAD. Skin: normal color, turgor, no icterus, cyanosis. HEENT: AT/NC, EOMI, PERRLA, MMM. Lungs: CTA bilaterally, moderate effort, mild decrease BL bases, no rales, ronchi or wheezing; Heart: Regular rate and rhythm; no gallop, rub audible. Abdomen: soft, NTTP, ND, normal BS. Extremities: no cyanosis, clubbing, or edema. Neurological: patient awake, alert, oriented x 3; cognitive function appears intact upon questioning,; pupils equally reactive to light and accomodation; cranial nerves II-XII grossly normal, moving all 4 extremities, strength appropriate. Psychiatric: affect appears normal, no acute evidence of depressive or anxiety feelings. Assessment and Plan: Please see hospital summary above. Discharge Activity: Return to Normal Activity May resume sexual activity in: No Restrictions Weight Bearing Status: Weight bearing as tolerated Call your doctor if you observe: Fever of 101 or Higher, Inability to urinate, Inability to have a bowel movement, Shortness of breath, Dizziness, Fainting spells, Chest pain, Uncontrolled pain Home Medications: Medications to take at Discharge Multivitamin [Daily Multiple Vitamin] 1 each PO DAILY 04/15/16 Sertraline HCl [Zoloft] 150 mg PO DAILY 04/15/16 Ferrous Sulfate 325 mg PO DAILY@0800 11/07/17 Mirtazapine [Remeron] 30 mg PO QHS 11/07/17 Varenicline [Chantix] 1 mg PO DAILY 11/07/17 Folic Acid 1 mg PO DAILY@0800 #30 tab 11/10/17 Thiamine Hydrochloride [Vitamin B1] 100 mg PO DAILYCM #30 tab 11/10/17 Following Prescrptions Were Given to Patient: Folic Acid 1 mg PO DAILY@0800 #30 tab Thiamine Hydrochloride [Vitamin B1] 100 mg PO DAILYCM #30 tab Primary Care Physician: [facility] Doctor,Out of [NON-STAFF] - Please follow up with your Primary Care Physician in: Follow-up within 3-5 days to review admission, assist in staying sober. Please Follow Up With: [facility] When: Please continue w/ [facility] plan for discharge. Patient Instructions: Understanding Alcoholism, Alcoholism: Myths and Facts, The Impact of Alcoholism, Alcoholism: Getting Help, Alcohol Withdrawal: What to Expect, Addiction: Ask Yourself These Questions, Addiction: Getting Help, Addiction: Your Treatment Options Disposition: Home Minutes spent on discharge:: 25 Patient Condition:: Fair Medical Necessity - Tobacco Use Smoking Status: Former smoker Tobacco Use: Non-smoker Meaningful Use Info Meaningful Use Diagnoses (Choose all that apply): None applicable Code Visit Inpatient E&M: 83681 Disch Hosp
--- NOTE | 2017-11-10 08:09 | DS.PCM_ITS ---
Discharge Date and Diagnosis - Problem List Patient Problems: Active and Suspected Problems Alcohol withdrawal (Acute) Date of Admission: 11/07/17 Date of Discharge: 11/10/17 - Primary Discharge Diagnosis Active and Suspected Problems Alcohol withdrawal Anxiety and depression Former Tobacco use on Chantix regimen Obesity Fe deficiency anemia - Secondary Discharge Diagnosis Chronic Problems Anxiety and depression (Chronic) Hospital Course and Treatment Operations: None Procedures: None Summary of Care Provided: The patient is a 42 y/o F w/ PMHx: Fe Deficiency Anemia, EtOH Abuse, Obesity, Anxiety and Depression, Former Tobacco Use who presents to the [facility] on 11/07/17 w / noted acute EtOH withdrawal with onset of nausea, tremors, agitation, tactile disturbances. Patient interested in attaining sober status. Patient was admitted to [place] on telemetry, routine labs obtained, initiated and continue on [facility] service protocol with taper course of ativan, as needed Seroquel, Catapres, Bentyl, Vistaril, IV fluids, IV antiemetics, Tylenol as needed for pain. Patient clinically improved and completed taper with [facility] assistance for transition to next level of rehabilitation care. During admission patient maintained on her home regimen, including regimen for anxiety and depression as well as Chantix for ongoing efforts for tobacco cessation. During admission 11/08/17 patient did have fall with no injury and examination per Hospitalist and staff was unremarkable. Patient continued on protocol as noted without further issues. DAY OF DISCHARGE PROGRESS NOTE: Subjective: Patient without acute event overnight per self and nursing report. Patient withdrawal symptoms notably improved. Patient denies fever, chills, nausea, emesis, abdominal pain, chest pain or dyspnea. Patient agreeable to discharge to outpatient for ongoing [facility] directed rehabilitation. Patient will be discharged with follow-up with primary care physician within 3-5 days in addition to as noted [facility] plan for continued sobriety. Objective: T 97.9, heart rate 75, BP 103/71, respiratory rate 16, 98% on RA. Physical Examination: General: awake, alert, oriented x 3 and cooperative, seated upright in the bed, NAD. Skin: normal color, turgor, no icterus, cyanosis. HEENT: AT/NC, EOMI, PERRLA, MMM. Lungs: CTA bilaterally, moderate effort, mild decrease BL bases, no rales, ronchi or wheezing; Heart: Regular rate and rhythm; no gallop, rub audible. Abdomen: soft, NTTP, ND, normal BS. Extremities: no cyanosis, clubbing, or edema. Neurological: patient awake, alert, oriented x 3; cognitive function appears intact upon questioning,; pupils equally reactive to light and accomodation; cranial nerves II-XII grossly normal, moving all 4 extremities, strength appropriate. Psychiatric: affect appears normal, no acute evidence of depressive or anxiety feelings. Assessment and Plan: Please see hospital summary above. Discharge Activity: Return to Normal Activity May resume sexual activity in: No Restrictions Weight Bearing Status: Weight bearing as tolerated Call your doctor if you observe: Fever of 101 or Higher, Inability to urinate, Inability to have a bowel movement, Shortness of breath, Dizziness, Fainting spells, Chest pain, Uncontrolled pain Home Medications: Medications to take at Discharge Multivitamin [Daily Multiple Vitamin] 1 each PO DAILY 04/15/16 Sertraline HCl [Zoloft] 150 mg PO DAILY 04/15/16 Ferrous Sulfate 325 mg PO DAILY@0800 11/07/17 Mirtazapine [Remeron] 30 mg PO QHS 11/07/17 Varenicline [Chantix] 1 mg PO DAILY 11/07/17 Folic Acid 1 mg PO DAILY@0800 #30 tab 11/10/17 Thiamine Hydrochloride [Vitamin B1] 100 mg PO DAILYCM #30 tab 11/10/17 Following Prescrptions Were Given to Patient: Folic Acid 1 mg PO DAILY@0800 #30 tab Thiamine Hydrochloride [Vitamin B1] 100 mg PO DAILYCM #30 tab Primary Care Physician: [facility] Doctor,Out of [NON-STAFF] - Please follow up with your Primary Care Physician in: Follow-up within 3-5 days to review admission, assist in staying sober. Please Follow Up With: [facility] When: Please continue w/ [facility] plan for discharge. Patient Instructions: Understanding Alcoholism, Alcoholism: Myths and Facts, The Impact of Alcoholism, Alcoholism: Getting Help, Alcohol Withdrawal: What to Expect, Addiction: Ask Yourself These Questions, Addiction: Getting Help, Addiction: Your Treatment Options Disposition: Home Minutes spent on discharge:: 25 Patient Condition:: Fair Medical Necessity - Tobacco Use Smoking Status: Former smoker Tobacco Use: Non-smoker Meaningful Use Info Meaningful Use Diagnoses (Choose all that apply): None applicable Code Visit Inpatient E&M: 27027 Disch Hosp
[2017-11-10] MEDS: Varenicline 1 MG Tablet PO (08:26)
[2017-11-10] MEDS: Thiamine Hydrochloride 100 MG Tablet PO (08:26)
[2017-11-10] MEDS: Folic Acid 1 MG Tablet PO (08:26)
[2017-11-10] MEDS: Multivitamins,Therapeutic Tablet 1 TABLET PO (08:26)
[2017-11-10] MEDS: Ferrous Sulfate 325 MG Tablet PO (08:27)
[2017-11-10] MEDS: Famotidine 20 MG Tablet PO (08:27)
[2017-11-10] MEDS: Sertraline 100 MG Tablet 150 MG PO (08:27)
[2017-11-10] MEDS: QUEtiapine 25 MG Tablet PO (08:30)
[2017-11-10 09:54] VITALS: BP 110/68; PULSE 94; RESP 16; TEMP 36.3; O2SAT 99
--- NOTE | 2017-11-10 10:00 | NURSING ---
Pt. continues to c/o severe anxiety due to thought of going home. Requests additional medication for anxiety.
[2017-11-10] MEDS: hydrOXYzine PAM 25 MG Capsule 50 MG PO (10:03)
== END 2017-11-10 10:25 | disposition home or self-care (01) | DRG 435 ==
LOC: ED 10:45 → MS2 11:36
PROVIDERS: Admitting Provider Internal Medicine; Emergency Provider Emergency Medicine; Visit Provider Family Medicine
DX: F10.239 Alcohol dependence with withdrawal, unspecified (principal); Y90.6 Blood alcohol level of 120-199 mg/100 ml; F32.9 Major depressive disorder, single episode, unspecified; F41.9 Anxiety disorder, unspecified; Z79.899 Other long term (current) drug therapy; Z98.84 Bariatric surgery status; Z87.891 Personal history of nicotine dependence; Z87.442 Personal history of urinary calculi; E87.6 Hypokalemia; D50.9 Iron deficiency anemia, unspecified; E66.9 Obesity, unspecified; Z68.30 Body mass index [BMI] 30.0-30.9, adult; W18.30XA Fall on same level, unspecified, initial encounter; Y93.9 Activity, unspecified; Y92.239 Unspecified place in hospital as the place of occurrence of the external cause; Y99.8 Other external cause status
CPT/HCPCS: 36415; 80048; 80307; 80320; 82150; 83690; 84703; 85025; 85610; 99281; 99406; G0480